=== PATIENT | male | born 1950 | race Caucasian/White ===

== ENCOUNTER 2019-11-06 07:35 | Outpatient (CLI) | payer MEDICARE, SELFPAY ==
--- NOTE | 2019-11-14 14:04 | SLEEP_ITS ---
Split night sleep study. DATE OF STUDY: 11/06/2019 ORDERING PHYSICIAN: Tunde Kirkpatrick M.D. REASON FOR THE STUDY: Obstructive sleep apnea syndrome. HISTORY: This patient is a 69-year-old man, 70 inches tall, weighing 258 pounds with a body mass index of 37. He has a prior history of obstructive sleep apnea syndrome diagnosed 25 years ago. He has been using CPAP off and on. Lately, he has had significant difficulties with his sleep and he is feeling more restless. He has difficulty falling asleep, waking up during the night, waking up too early in the morning, excessive daytime sleepiness and difficulty waking up. There is also a family history with 2 brothers on CPAP. He frequently snores and it is frequently loud enough that others complain about it. He frequently has trouble sleeping with cold, occasionally gasps for breath at night. Occasionally, he has problems breathing at night witnessed by others and constantly sweats excessively at night. He rarely notices his heart pounding or beating irregularly at night. He frequently falls asleep during the day frequently involuntarily, but never while driving. He does not have loss of muscle tone with extreme emotion. He does not have daytime difficulties due to excessive sleepiness. He occasionally feels paralyzed when waking or falling asleep. He frequently has vivid dreamlike scenes upon awakening or falling asleep. He is never afraid to go to sleep. He occasionally has nightmares. He frequently remembers his dreams and frequently has racing thoughts to his mind. He rarely feels sad or depressed and rarely feels anxious. He frequently has muscular tension and notices parts of his body jerking. He frequently kicks excessively at night. He rarely has crawly achy feelings in his legs and occasionally has leg pain at night. He does not have morning jaw pain. He rarely grinds his teeth during sleep. He frequently is bothered by pain during the day and is awakened by pain at night. He constantly wakes up feeling stiff in the morning with sore achy muscles and pain in the neck and spine. He has bowel disturbances, fatigue, memory problems, tremors, and he takes sedatives. Normal bedtime is between midnight and 2 a.m., falling asleep with the use of a sleeping pill. He typically awakens 3 times at night for 10 to 15 minutes. During this time, he will go to the bathroom, sometimes go to the couch and watch television. He wakes in the morning at 10:30 a.m. He estimates somewhere between 6 and 10 hours of sleep each night. Weekends are the same. He does watch television before falling asleep. He does take naps in the afternoon or evening. He does not feel refreshed after short nap. He is usually drowsy in the morning for 2 hours. He feels better in the evening than in the morning. MEDICAL COMORBIDITIES: Bladder cancer, spinal stenosis, chest pain, obstructive sleep apnea syndrome, currently not on CPAP, coronary artery disease with a stent to the mid RCA, shortness of breath, arthritis, bifascicular block, diarrhea, enlarged prostate, hyperlipidemia, hypertension. MEDICATIONS: 1. Aspirin 81 mg a day. 2. Citalopram 20 mg a day. 3. Diclofenac 75 mg twice a day. 4. Finasteride 5 mg daily. 5. Lisinopril 20 mg a day. 6. Nitroglycerin sublingual p.r.n. chest pain. 7. Oxycodone 15 mg q.8 hours p.r.n. pain. 8. Ticagrelor 90 mg twice a day. 9. Tizanidine 4 mg q.8 hours p.r.n. muscle spasms. HABITS: Currently not a smoker. Caffeine, 3 sodas a day. No alcohol. He is a former smoker, 2 packs a day for 40 years. He quit 17 years ago. DESCRIPTION OF THE STUDY: On the [place] Sleepiness Scale, his score is 14. This was conducted as a split night study using the [employer] multiple channel system including E
== END 2019-11-06 07:36 | disposition home or self-care (01) ==
LOC: ANHCSM 07:36
PROVIDERS: Visit Provider Internal Medicine Cardiovascular Disease
DX: G47.33 Obstructive sleep apnea (adult) (pediatric) (principal)
CPT/HCPCS: 95811

== ENCOUNTER 2021-03-15 01:25 | Day surgery (SDC) | payer MEDICARE, SELFPAY ==
[2021-02-26 11:53] VITALS: BMI 35.9
[2021-03-15 10:55] VITALS: BP 149/83; PULSE 72; RESP 16; TEMP 36.3; O2SAT 95
[2021-03-15] MEDS: LACTATED RINGERS 1,000 ML 150 ML IV CONT (10:59)
--- NOTE | 2021-03-15 11:35 | WPDGICN ---
Assessment and Plan Assessment and plan (1) Dysphagia: Code(s): R13.10 - Dysphagia, unspecified Status: Acute Assessment and Plan: Patient has intermittent this dysphagia. Specifics are difficult to analyze. Appears to happen with all textures of food. Plan is for EGD to assess more thoroughly. (2) Diarrhea: Code(s): R19.7 - Diarrhea, unspecified Status: Acute Assessment and Plan: Patient has intermittent diarrhea raising the question of irritable bowel syndrome. Plan is for colonoscopy. If this is unremarkable a trial of fiber supplementation may be of additional benefit. GI Consult Note Consult date/time: 03/15/21 11:35 HPI: Nestor Sanchez is a 71 year old male Presents with complaints of diarrhea and difficulty swallowing. Patient reports difficulty swallowing both soda, water, and food. He states this occurs intermittently. No specific foods nor dietary intake seemed to precipitate this. It does not happen with all dietary intake. Patient denies any heartburn. He has no substernal chest pain. He has no throat pain. States this is been present for several years. He denies any weight loss or bleeding. Presents to evaluate with an EGD today. Patient also had 6 complaints of diarrhea. This occurs intermittently has also been present for several years. He states that he has had loose stools frequently after eating. It is not persistent. He often will have normal stools. He takes Imodium up to 4 or 6 a night. He has never had inflammation. Denies any bleeding. He has had no fevers. Patient reports having an unremarkable colonoscopy in the past. His family history is noncontributory. Colonoscopy is requested because of intermittent diarrhea. Patient has never tried any additional therapy besides the Imodium for his loose stools. 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 SOB (shortness of breath) on exertion Spinal stenosis Family History Family History Sibling Family history of diabetes mellitus in first degree relative Father Family history of heart disease in male family member before age 55 Other Hypertension Social History Social History Smoking packs per day: 1 Smoking cigarettes per day: 20.0 Years smoked: 2,002 Smoking pack-years: 2002.00 Smoking status: Former smoker Smoking end date: 08/28/02 Alcohol intake: current Substance use type: does not use Living arrangements: with family Additional living arrangements comments: lives with spouse Additional occupation/education comments: he worked in [employer], now retired, previously biked 20 miles a day. Likes to be outdoors. Gender identity (if verbalized by the patient): Male Sexual Orientation (if Verbalized by the Patient): Straight or Heterosexual Spiritual care concerns: No Meds Home Medications and Allergies Home Medications Medication Instructions Recorded Confirmed Type atorvastatin 40 mg tablet 40 mg PO DAILY 03/09/20 03/15/21 History carvedilol 12.5 mg tablet 12.5 mg PO Q12H 03/09/20 03/15/21 History citalopram 20 mg tablet 20 mg PO DAILY 03/09/20 03/15/21 History finasteride 5 mg tablet 5 mg PO DAILY 03/09/20 03/15/21 History lisinopril 20 mg tablet 20 mg PO DAILY 03/09/20 03/15/21 History nitroglycerin 400 mcg sublingual 1 mcg SUBLINGUAL Q5M PRN 03/09/20 03/15/21 History powder in a packet tizanidine 4 mg capsule 4 mg PO BID PRN cap 03/09/20 03/15/21 History oxycodone 10 mg PO TID 02/26/21 03/15/21 History ticagrelo
--- NOTE | 2021-03-15 11:36 | WPDANESEPPF ---
Anes - Initial Pre Proc Eval Procedure: Operation Date: 03/15/21 11:30 Proposed Procedures p Esophagogastroduodenoscopy & Colonoscopy - Jr Palomo MD Date/Time: 03/15/21 11:36 Surgeon: Jr Palomo MD Pre Op Diagnosis: diarrhea, dysphagia Patient Data Age: 71 Gender: M Height: 1.78 m Weight: 114.9 kg Last Vital Signs Temp 97.4 F L 03/15/21 10:55 Pulse 72 03/15/21 10:55 Resp 16 03/15/21 10:55 BP 149/83 H 03/15/21 10:55 Pulse Ox 95 03/15/21 10:55 Allergies Allergy/AdvReac Type Severity Reaction Status Date / Time No Known Allergies Allergy Verified 06/04/20 08:41 Home Medications Medication Instructions Recorded Confirmed Type atorvastatin 40 mg tablet 40 mg PO DAILY 03/09/20 03/15/21 History carvedilol 12.5 mg tablet 12.5 mg PO Q12H 03/09/20 03/15/21 History citalopram 20 mg tablet 20 mg PO DAILY 03/09/20 03/15/21 History finasteride 5 mg tablet 5 mg PO DAILY 03/09/20 03/15/21 History lisinopril 20 mg tablet 20 mg PO DAILY 03/09/20 03/15/21 History nitroglycerin 400 mcg sublingual 1 mcg SUBLINGUAL Q5M PRN 03/09/20 03/15/21 History powder in a packet tizanidine 4 mg capsule 4 mg PO BID PRN cap 03/09/20 03/15/21 History oxycodone 10 mg PO TID 02/26/21 03/15/21 History ticagrelor [Brilinta] 60 mg PO DAILY 02/26/21 03/15/21 History Patient hx anesthesia problems: none Family hx anesthesia problems: none PMFSH Past Medical History Medical History Anxiety Bladder cancer Coronary artery disease RCA stent August 2019 History of tobacco use Hyperlipidemia Hypertension Melanoma 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 SOB (shortness of breath) on exertion Spinal stenosis Family History Family History Sibling Family history of diabetes mellitus in first degree relative Father Family history of heart disease in male family member before age 55 Other Hypertension Social History Social History Smoking packs per day: 1 Smoking cigarettes per day: 20.0 Years smoked: 2,002 Smoking pack-years: 2002.00 Smoking status: Former smoker Smoking end date: 08/28/02 Alcohol intake: current Substance use type: does not use Living arrangements: with family Additional living arrangements comments: lives with spouse Additional occupation/education comments: he worked in [email or web address], now retired, previously biked 20 miles a day. Likes to be outdoors. Gender identity (if verbalized by the patient): Male Sexual Orientation (if Verbalized by the Patient): Straight or Heterosexual Spiritual care concerns: No Anes - Eval Final PreProcedure Day of Procedure 03/15/21 11:36 Patient weight: obese Heart: regular rate and rhythm Lungs: clear to auscultation Airway: Mallampati scale class III Neurological: alert and oriented Last oral intake: >/= 8 hours ASA classification: III Emergent: no Anesthetic plan: proceed Anesthesia type and monitoring: general GIVS and standard monitoring Informed Consent: The patient's anesthetic plan and its attendant risks and benefits were discussed with the patient/family/POA. Questions were solicited and answers provided to the satisfaction of the patient/family/POA.
[2021-03-15] MEDS: SIMETHICONE ORAL SUSPENSION 20 MG/0.3 ML 30 ML BOTTLE 0.6 ML IRRIGATION (12:07)
[2021-03-15 12:16] VITALS: BP 122/70; PULSE 72; RESP 20; O2SAT 99
[2021-03-15 12:26] VITALS: BP 127/77; PULSE 64; RESP 22; O2SAT 99
[2021-03-15 12:36] VITALS: BP 144/84; PULSE 60; RESP 20; O2SAT 100
== END 2021-03-15 12:55 | disposition home or self-care (01) ==
PROVIDERS: PCP Physician Assistant; Visit Provider Internal Medicine Gastroenterology
PROC: 0DJ08ZZ Inspection of Upper Intestinal Tract, Via Natural or Artificial Opening Endoscopic (ICD-10-PCS; CPT 43235; principal; 2021-03-15 11:30)
DX: R19.7 Diarrhea, unspecified (principal); D12.2 Benign neoplasm of ascending colon; R13.10 Dysphagia, unspecified; K57.30 Diverticulosis of large intestine without perforation or abscess without bleeding; K64.8 Other hemorrhoids; I25.10 Atherosclerotic heart disease of native coronary artery without angina pectoris; I10 Essential (primary) hypertension; E78.5 Hyperlipidemia, unspecified; M48.00 Spinal stenosis, site unspecified; G47.33 Obstructive sleep apnea (adult) (pediatric); Z85.820 Personal history of malignant melanoma of skin; F41.9 Anxiety disorder, unspecified; Z95.5 Presence of coronary angioplasty implant and graft; Z85.51 Personal history of malignant neoplasm of bladder; Z87.891 Personal history of nicotine dependence
CPT/HCPCS: 45385; 43235; 43450; 88305; J2001; J2704; J7120

== ENCOUNTER → 2021-05-25 13:55 | Outpatient (CLI) | payer MEDICARE, SELFPAY ==
--- NOTE | ~2021-05-25 | XR_ITS ---
EXAMINATION: XR knee LT 3V DATE: 05/25/2021 14:55 INDICATION: Left knee pain TECHNIQUE: Four views of the left knee were obtained. COMPARISON: 05/14/2019 FINDINGS: Alignment is normal. No fracture or osteochondral lesion. There is mild tricompartmental os teoarthritis characterized by tiny marginal osteophytes. No joint effusion/synovitis. Soft tissues a re unremarkable. IMPRESSION: 1. Mild osteoarthritis without acute osseous abnormality. Reviewed, dictated and finalized at location A.
--- NOTE | ~2021-05-25 | XR_ITS ---
EXAMINATION: XR knee RT 3V DATE: 05/25/2021 14:55 INDICATION: Osteoarthritis and right knee pain TECHNIQUE: Three views of the right knee were obtained. COMPARISON: 05/14/2019 FINDINGS: Alignment is normal. No fracture or osteochondral lesion. There is mild tricompartmental os teoarthritis characterized by tiny marginal osteophytes. No joint effusion/synovitis. Soft tissues a re unremarkable. IMPRESSION: 1. Mild osteoarthritis without acute osseous abnormality. Reviewed, dictated and finalized at location A.
== END ==
PROVIDERS: PCP Physician Assistant; Visit Provider Nurse Practitioner Adult Health
DX: M17.0 Bilateral primary osteoarthritis of knee (principal)
CPT/HCPCS: 73562

== ENCOUNTER 2022-02-03 12:04 | Outpatient (CLI) | payer MEDICARE, SELFPAY ==
--- NOTE | ~2022-02-03 | PE_ITS ---
EXAMINATION: PET skull to mid thigh DATE: 02/03/2022 14:03 INDICATION: Abnormality of the chest by CT. TECHNIQUE: 9.8 mCi of 18-fluorodeoxyglucose (18-FDG) was administered i.v. Low dose computed tomograp hy (CT) images were acquired from the base of the brain to the proximal thighs for attenuation correc tion and anatomic localization. Positron emission tomography (PET) images were acquired after injecti on. Images including fused PET/CT images were reconstructed in axial, coronal, and sagittal planes. A utomatic exposure control is employed as a dose reduction technique. COMPARISON: CT abdomen dated 02/07/2017 FINDINGS: Head/neck: No intracranial abnormality identified. There is a mucous retention cyst left maxillary sinus. Abnormality of the mucosal or parapharyngeal spaces. No cervical lymphadenopathy. No hypermetabolic a ctivity in the neck. There is hypermetabolic activity in the left nasal ala. There appears to be a fo armando mass located at this location with maximum SUV of 5.2. Chest: No significant pleural or pericardial effusion. Cardiomegaly. There is gynecomastia. No lymphadenopat hy. There are a few right pleural calcifications suggesting prior asbestos exposure. No pneumothorax. No endobronchial lesions. Evaluation of lung parenchyma limited by motion artifact. There is right l ower lobe atelectasis/scarring. No hypermetabolic activity in the chest. There are calcified hilar ly mph nodes, consistent with chronic granulomatous disease. There is atherosclerosis. Abdomen/pelvis/proximal thighs: The liver, spleen, pancreas, adrenal glands are unremarkable. There are bilateral renal cysts. Nonobs tructive bowel gas pattern. Colonic diverticulosis without evidence for diverticulitis. There is phys iologic uptake in the colon. No lymphadenopathy. No free air or free fluid. Bones/Soft tissues: There are anterior fusion changes in the cervical spine. No hypermetabolic activity is identified in the bones. IMPRESSION: 1. Focal mass left nasal ala with hypermetabolic activity, suspicious for malignancy. Correlate clini tushar. Reviewed, dictated and finalized at location B. IMPRESSION: 1. Focal mass left nasal ala with hypermetabolic activity, suspicious for malig phil. Correlate clinically.
[2022-02-03 12:41] LABS: Glucose Point of Care 114 mg/dl (65-105)
== END 2022-02-03 12:05 | disposition home or self-care (01) ==
PROVIDERS: PCP Physician Assistant; Visit Provider Physician Assistant
DX: R91.1 Solitary pulmonary nodule (principal)
CPT/HCPCS: 78815; A9552

== ENCOUNTER 2022-03-18 12:55 | Outpatient (CLI) | payer MEDICARE, SELFPAY ==
--- NOTE | ~2022-03-18 | MR_ITS ---
EXAMINATION: MR knee LT wo con DATE: 03/18/2022 13:27 INDICATION: Left knee pain TECHNIQUE: Magnetic resonance imaging (MRI) of the left knee was performed without intravenous contra st. Sequences included coronal PD-weighted FSE, coronal PD-weighted FS FSE, sagittal T2-weighted FSE , sagittal PD-weighted FS FSE and axial PD weighted fat saturated FSE. COMPARISON: None. FINDINGS: Medial compartment: Complex tear extending obliquely in all 3 planes across the anterior/inner half of the posterior horn of the medial meniscus. There is an additional less well-defined complex tear plane at the medial me niscal body which extends from the inner free edge to the periphery along the inferior articular surf frandy. There is subluxation of a small portion of the posterior meniscal body along the inferior periph radha which is displaced into the medial gutter along the medial margin of the rim of the tibial platea u. There appears be diffuse mild partial-thickness cartilage thinning throughout the medial compartme nt relative to the lateral compartment but with diffusely smooth chondral surface. Lateral compartment: Lateral meniscus is normal. Small region of mild chondral swelling with some signal heterogeneity at the posterior medial aspect of the lateral tibial plateau suspicious but not definitive for some part ial-thickness chondral fissuring. Mild partial-thickness cartilage loss with smooth chondral surface along the posterior weightbearing lateral femoral condyle.. Patellofemoral compartment: Deep chondral fissure along the medial patellar facet. There is some chondral surface regularity april g the patellar apical ridge and medial side of the lateral facet. There is linear increased signal de ep within the cartilage in this region on the axial and sagittal images but which appears more likely to be related to small amount of motion artifact. Deep chondral ulceration with underlying cortical irregularity and mild cystlike changes at the inferior aspect of the trochlear groove and inferomedia l aspect of the lateral trochlea. Ligaments and tendons: Anterior and posterior cruciate ligaments are normal. The medial collateral ligament and fibular megan ateral ligament complex are normal. Moderate quadriceps tendinopathy with a clearly small partial thi ckness intrasubstance tear located centrally within the tendon beginning approximately 2 cm proximal to the patellar insertion and involving no greater than 15% of the cross-sectional area of the tendon . Patellar tendon is normal. The visualized medial and lateral hamstring tendons as well as the iliot ibial band are normal. Fluid: Physiologic amount of fluid in the joint space. No loose osteochondral bodies identified. Osseous/other: Small low signal intensity bone islands at the medial and lateral femoral condyles as well as a coupl e at the lateral aspect of the proximal tibia. Marrow signal is otherwise unremarkable. No fracture o r pathologic marrow replacing process. IMPRESSION: 1. Complex medial meniscal tear. 2. Mild tricompartmental osteoarthritis most notable for a small region of high-grade chondromalacia at the trochlea. 3. Moderate quadriceps tendinopathy with likely small partial-thickness intrasubstance tear. Reviewed, dictated and finalized at location A. IMPRESSION: 1. Complex medial meniscal tear. 2. Mild tricompartmental osteoarthritis most notable for a small region of high -grade chondromalacia at the trochlea. 3. Moderate quadriceps tendinopathy with likely small partial-thickness intrasu bstance tear.
== END 2022-03-18 12:56 | disposition home or self-care (01) ==
PROVIDERS: PCP Physician Assistant; Visit Provider Orthopaedic Surgery
DX: M25.562 Pain in left knee (principal); S83.232A Complex tear of medial meniscus, current injury, left knee, initial encounter; M17.12 Unilateral primary osteoarthritis, left knee; M94.262 Chondromalacia, left knee
CPT/HCPCS: 73721

== ENCOUNTER 2022-04-13 13:05 | Outpatient (CLI) | payer MEDICARE, SELFPAY ==
--- NOTE | 2022-04-13 13:22 | ECG_ITS ---
Measurements Intervals [place] Rate: 58 P: 16 [place]: 156 QRS: 55 QRSD: 146 T: -85 QT: 400 QTc: 395 Interpretive Statements SINUS BRADYCARDIA RIGHT BUNDLE BRANCH BLOCK [120+ ms QRS DURATION, UPRIGHT V1, 40+ ms S IN I/aVL/V4/V5/V6] MODERATE ST AND T-WAVE ABNORMALITY, CONSIDER LATERAL ISCHEMIA [-0.1+ mV T WAVE IN I/aVL/V5/V6] ABNORMAL ECG Electronically Signed On 04-13-2022 13:43:52 CDT by Tunde Kirkpatrick M.D.
== END 2022-04-13 13:06 | disposition home or self-care (01) ==
LOC: ANHLAB 13:07
PROVIDERS: PCP Physician Assistant; Visit Provider Orthopaedic Surgery
DX: Z01.810 Encounter for preprocedural cardiovascular examination (principal); R00.1 Bradycardia, unspecified; I45.10 Unspecified right bundle-branch block
CPT/HCPCS: 93005

== ENCOUNTER 2022-06-14 07:47 | Outpatient (CLI) | payer MEDICARE, SELFPAY ==
--- NOTE | 2022-07-05 16:26 | WPDSLEEPSTUD ---
Sleep Study Date of Study: 06/14/22 Ordering Provider: Grecia Brennan MD Interpreting Physician: Jennifer Graf DO Sleep Study Type: BiPAP Titration Height: 1.8 m Weight: 123.831 kg Body Mass Index: 38.0 Neck Circumference (inches): 19 [place]: 12 Reason for Sleep Study Elevated ISRA on autoPAP 5-20 cm H2O. 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 The patient is currently retired. He occasionally awakens from sleep short of breath. He denies awakening at night with heartburn, belching or cough. He constantly snores loud enough that others complain. He occasionally has trouble sleeping when he has a cold. He frequently wakes up gasping for air throughout the night. He constantly has breathing problems at night observed by himself or others. He occasionally sweats excessively at night. He rarely has heart palpitations or irregular heartbeats during the night. He frequently falls asleep during the day but never while driving. He denies sleep paralysis and cataplexy. He occasionally experiences vivid dreamlike scenes upon awakening or falling asleep. He denies feeling afraid of going to sleep. He occasionally has nightmares. He occasionally remembers his dreams. He rarely has thoughts racing through his mind. He rarely feels sad, depressed or anxious. He rarely has muscular tension. He occasionally notices parts of his body jerk. He occasionally kicks during the night. He rarely has crawling and aching feelings in his legs as well as leg pain during the night. He occasionally grinds his teeth during sleep but never awakens with morning jaw pain. He is constantly bothered by pain during the day and frequently awakened by pain during the night. He constantly wakes up feeling stiff in the morning. He constantly wakes up with sore or achy muscles. He constantly wakes up with pain in the neck, spine and other joints. He goes to bed at 1:00 a.m. on both weekdays and weekends. It takes him 20 minutes to fall asleep. He wakes up 1-2 times throughout the night for unknown reasons. When he awakens he will try to go back to sleep or sometimes go to the TV room. He is usually able to fall back asleep within 10 minutes. He wakes up at 7:00 a.m. on both weekdays and weekends. He typically gets 6 hours of sleep per night. He will occasionally wake up and go to the TV room during the night. If he stays there, he will stay and watch television for 2 hours after waking up in the morning. He currently lives with his . He does not consume any caffeinated beverages within 2 hours of bedtime. He does not engage in physical exercise before bedtime. He will watch television before falling asleep. He will take naps in the afternoon or the evening but they are not refreshing. The patient drinks 2 cups of coffee and 5 cans of soda per day. He is a former smoker. He denies alcohol and recreational drug use. [facility] Past Medical History Medical History Anxiety Bladder cancer Coronary artery disease RCA stent August 2019 History of tobacco use Hyperlipidemia Hypertension Melanoma 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 SOB (shortness of breath) on exertion Spinal stenosis Family History Family History Sibling Family history of diabetes mellitus in first degree relative Father Family history of heart disease in male family member before age 55 Other Hypertension Social History Social History Smoking packs per day: 1 Smoking cigarettes per day: 20.0 Years smoked: 22 Smoking pack-years: 22.00 Smoking status: Former smoker Smoking end date: 08/28/02 Gokul
[2022-07-05 16:40] VITALS: BMI 38.0
--- NOTE | 2022-10-06 10:05 | SLEEP ---
pt is having continued mask issues. tech offered pt to come in for mask fit. pt is currently sick he will call lab to schedule. pt scheduled for 30 day call back.
== END 2022-06-15 08:39 | disposition home or self-care (01) ==
PROVIDERS: PCP Physician Assistant; Visit Provider Internal Medicine Critical Care Medicine
DX: G47.31 Primary central sleep apnea (principal)
CPT/HCPCS: 95811

== ENCOUNTER 2022-06-15 13:24 | Outpatient (CLI) | payer MEDICARE, SELFPAY ==
--- NOTE | 2022-06-15 13:50 | ECHO_ITS ---
Patient Info Name: Nestor Sanchez Age: 72 years : 1950 Gender: Male Ht: 70 in Wt: 270 lbs BSA: 2.51 m2 HR: 78 bpm BP: 150 / 81 mmHg Technical Quality: Fair Exam Date: 06/15/2022 2:17 PM Exam Location: [facility] Patient Status: Outpatient Admit Date: 06/15/2022 Staff Ordering Physician: Grecia Brennan MD [employer]andise: Jyoti Reyes RDCS Attending Provider: Grecia Brennan MD Referring Physician: Anu LINO; Exam Type: CA echo dop color flow w con Study Info Indications G47.31 - PRIMARY CENTRAL SLEEP APNEA Complete two-dimensional, color flow and Doppler transthoracic echocardiogram is performed with contrast to opacify the left ventricle and to improve the deliniation of the left ventricle endocardial borders. Contrast/Agitated Saline Contrast/Ag. Saline: Definity Amount: 2.00 ml Administered By: Jyoti Reyes [facility] Existing IV Access: No New IV Access: Left Site Condition: IV removed Summary 1. Left ventricular chamber dimension is normal. 2. Definity contrast administered improved wall motion interpretation. 3. Left ventricular systolic function is normal, estimated at 65-70%. 4. The left ventricular diastolic function is grade I diastolic dysfunction. 5. E/e' 10 is mildly elevated. 6. Left atrial chamber dimension is mildly enlarged. 7. No pulmonary hypertension, estimated pulmonary arterial systolic pressure is 28 mmHg. Left Ventricle E/e' 10 is mildly elevated. Definity contrast administered improved wall motion interpretation. Left ventricular chamber dimension is normal. Left ventricular systolic function is normal, estimated at 65-70%. The left ventricular diastolic function is grade I diastolic dysfunction. Right Ventricle Right ventricular systolic function is normal. Right ventricular chamber dimension is normal. Left Atria Left atrial chamber dimension is mildly enlarged. Right Atria Right atrial chamber dimension is normal. Aortic Valve The aortic valve is trileaflet. There is no aortic valve stenosis. There is no aortic valve regurgitation. Pulmonic Valve There is no pulmonic regurgitation. Mitral Valve There is no mitral valve stenosis. There is no mitral valve regurgitation. Tricuspid Valve There is no tricuspid valve regurgitation. No pulmonary hypertension, estimated pulmonary arterial systolic pressure is 28 mmHg. Pericardium/Pleural There is no pericardial effusion. Inferior Vena Cava Normal inferior vena cava with >50% collapse upon inspiration consistent with normal right atrial pressure, 5 mmHg. Aorta The aortic root size at the sinus of Valsalva is normal. Left Ventricular Outflow Tract Name Value Normal LVOT 2D LVOT Diameter 2.20 cm LVOT Doppler LVOT Peak Gradient 4 mmHg LVOT Mean Gradient 2 mmHg LVOT VTI 20.22 cm LVOT VTI/AV VTI Ratio 0.86 LVOT Stroke Volume 77.12 ml LVOT CO 15
[2022-06-15] MEDS: PERFLUTREN LIPID MICROSPHERES 1.5 ML VIAL DILUTED TO 10 ML TOTAL VOLUME IV PUSH (14:50)
== END 2022-06-15 13:25 | disposition home or self-care (01) ==
LOC: ANHCARD 13:26
PROVIDERS: PCP Physician Assistant; Visit Provider Internal Medicine Critical Care Medicine
DX: G47.31 Primary central sleep apnea (principal); I51.7 Cardiomegaly
CPT/HCPCS: C8929; Q9957

== ENCOUNTER 2022-06-22 12:36 | Outpatient (CLI) | payer MEDICARE, SELFPAY ==
--- NOTE | 2022-06-22 14:15 | WPDPFTINT ---
PFT Procedure Performed PFT Procedure Performed Spirometry with Pre/Post Bronchodilator Plethysmography (Lung Vol) Diffusing Cap (DLCO) Flow Vol Loop PFT Interpretation This is a pulmonary function test with pre and post-bronchodilator spirometry, plethysmography and diffusing capacity. The test was performed and results interpreted in accordance with the 2019 and 2005 ATS/ERS Task Force guidelines respectively using the Global Lung Function Initiative-2012 reference equations. Patient demonstrated good effort and cooperation. Reproducibility criteria were met. The quality of the pre bronchodilator spirometry maneuver was Grade A and post bronchodilator spirometry maneuver was Grade A. Findings: Spirometry: The contour the inspiratory and expiratory flow tracing are normal. The pre bronchodilator FVC is 3.31 L, 78% predicted. The pre bronchodilator FEV1 is 2.68 L, 83% predicted. The pre bronchodilator FEV1: FVC ratio was 81%. The post bronchodilator FVC is 3.45 L, representing a 4% increase. The post bronchodilator FEV1 is 2.71 L, representing 1% increase. The post bronchodilator FEV1: FVC ratio 79%. Plethysmography: The total lung capacity 7.34 L, 104% predicted. The functional residual capacity is 4.72 L, 126% predicted. The residual volume is 2.81 L, 115% predicted. Diffusing capacity: The diffusing capacity unadjusted for hemoglobin and carboxyhemoglobin is 19.7, 75% predicted. The diffusing capacity adjusted for alveolar volume is 3.94, 100% predicted. Impression: The spirometry is normal without evidence of an obstructive abnormality. There is no significant improvement after inhaling a single dose of albuterol. The lung volumes are normal. The diffusing capacity is normal. There are no prior studies for comparison
--- NOTE | 2022-06-22 14:17 | WPDSIXMINUTE ---
Six Minute Walk Procedure Procedure Performed Pulmonary Stress Test (6 min walk) Six Minute Walk Six Minute Walk: This is a 6 minute walk test. The test was performed and interpreted in accordance with the 2014 ERS/ATS task force guidelines. Findings: The patient's resting room air oxygen saturation measured by pulse oximetry was 93% and heart rate was 59 bpm. Patient ambulated for 305 meters and oxygen saturation remained 92 to 95%. Heart rate at the end of the study was 84 bpm. The patient did not qualify for supplemental oxygen at rest or with ambulation. There are no prior studies for comparison.
== END 2022-06-22 12:37 | disposition home or self-care (01) ==
LOC: ANHPFT 12:38
PROVIDERS: PCP Physician Assistant; Visit Provider Internal Medicine Critical Care Medicine
DX: R06.02 Shortness of breath (principal)
CPT/HCPCS: 94060; 94618; 94726; 94729

== ENCOUNTER → 2023-09-19 14:18 | Outpatient (CLI) | payer MEDICARE, SELFPAY ==
--- NOTE | ~2023-09-19 | MR_ITS ---
EXAMINATION: MR lumbar spine wo con DATE: 09/19/2023 14:51 INDICATION: Chronic low back pain. Lumbar radiculopathy. TECHNIQUE: Magnetic resonance imaging (MRI) of the lumbar spine was performed without intravenous con trast. Sequences included sagittal T2-weighted FSE, sagittal T2-weighted FS FSE, sagittal T1-weighted FSE, and axial T2-weighted FSE. COMPARISON: Lumbar spine MRI 09/15/2011 FINDINGS: There is 5 degrees dextrocurvature of lumbar spine. There is mild chronic anterior wedging of T12 and L1 vertebral bodies. There is mildly decreased disc height at L2-L3 and severely decreased disc height at L3-L4 and L4-L5. The distal spinal cord signal intensity is normal. The conus medulla ris is at L1. Osseous central spinal canal is developmentally small in lumbar spine. The following di sc levels are specifically discussed: L1-L2: The disc does not extend beyond the endplate margin. There is severe bilateral facet joint ost eoarthritis. There is no neural foraminal stenosis. There is mild central canal stenosis. L2-L3: The disc is bulging. There is severe bilateral facet joint osteoarthritis. There is mild bilat eral neural foraminal stenosis. There is mild central canal stenosis. L3-L4: The disc is bulging and has an annular fissure. There is severe bilateral facet joint osteoart hritis. There is moderate bilateral neural foraminal stenosis. There is mild central canal stenosis. There is moderate stenosis of the lateral recesses. L4-L5: The disc is bulging and has an annular fissure. There is severe bilateral facet joint osteoart hritis. There is moderate bilateral neural foraminal stenosis. There is mild central canal stenosis. There is severe stenosis of right lateral recess and moderate stenosis of left lateral recess. L5-S1: There is a central protrusion. There is moderate bilateral facet joint osteoarthritis. There i s mild right neural foraminal stenosis. There is mild central canal stenosis. IMPRESSION: 1. Severe lumbar spondylosis, worsened from 09/15/2011. Reviewed, dictated and finalized at location E. 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
== END ==
PROVIDERS: PCP Nurse Practitioner Family; Visit Provider Nurse Practitioner Family
DX: M47.26 Other spondylosis with radiculopathy, lumbar region (principal)
CPT/HCPCS: 72148

== ENCOUNTER 2024-06-13 11:11 | Outpatient (CLI) | payer MEDICARE, SELFPAY ==
--- NOTE | ~2024-06-13 | US_ITS ---
EXAMINATION: US renal BI DATE: 06/13/2024 12:18 INDICATION: Serum creatinine above reference range TECHNIQUE: Multiple ultrasound grayscale images of the kidneys were obtained. COMPARISON: None. FINDINGS: The right kidney measures 13.2 x 5.4 x 5.1 cm. The left kidney measures 12.7 x 4.7 x 5.5 cm. The kidn eys demonstrate normal echogenicity. Bilateral anechoic renal cysts the largest measuring 2.9 cm at t he inferior left kidney with additional 2.2 cm cysts at both the left and right kidney. There is no h ydronephrosis in either kidney. No stones identified. Subtle trabeculation of the bladder mucosa lik hayley related to chronic outlet obstruction from the enlarged prostate which measures 4.8 x 4.2 cm with echogenic calcifications. IMPRESSION: 1. Bilateral renal cysts. Otherwise normal kidneys without hydronephrosis. Reviewed, dictated and finalized at location A.
== END 2024-06-13 11:12 | disposition home or self-care (01) ==
LOC: ANHIMG 11:20
PROVIDERS: PCP Nurse Practitioner Family; Visit Provider Physician Assistant
DX: R94.4 Abnormal results of kidney function studies (principal); Q61.02 Congenital multiple renal cysts
CPT/HCPCS: 76775

== ENCOUNTER 2024-06-17 13:28 | Outpatient (CLI) | payer MEDICARE, SELFPAY ==
--- NOTE | 2024-06-17 14:01 | ECG_ITS ---
Test Date: 2024-06-17 14:12:17 Measurements Intervals [place] Rate: 67 P: 5 RI: 161 QRS: 51 QRSD: 139 T: 199 QT: 398 QTc: 421 Interpretive Statements SINUS RHYTHM RIGHT BUNDLE BRANCH BLOCK [120+ ms QRS DURATION, UPRIGHT V1, 40+ ms S IN I/aVL/V4/V5/V6] MARKED T-WAVE ABNORMALITY, CONSIDER ANTEROLATERAL ISCHEMIA [-0.5+ mV T-WAVE IN I/aVL/V3-V6] ABNORMAL ECG No previous ECG available for comparison Electronically Signed On 06-17-2024 14:24:01 CDT by Hany Santiago M.D.
[2024-06-17 14:20] LABS: Basophils Absolute Auto 0.1 K/mm3 (0.0-0.1); Basophils Percent Auto 0.8 % (0.2-1.2); Eosinophils Absolute Auto 0.2 K/mm3 (0-0.3); Hematocrit 39.9 % (42.0-52.0); Hemoglobin 13.2 g/dL (14.0-18.0); Immature Granulocyte Absolute 0.05 K/mm3 (0.00-0.031); Immature Granulocyte Percent A 0.7 % (0-0.5); Lymphocytes Absolute Auto 2.32 K/mm3 (0.9-3.2); Mean Corpuscular HGB Conc 33.1 g/dl (32-36); Mean Corpuscular Volume 96.6 fl (80-100); Mean Platelet Volume 10.1 fl (7.4-10.4); Monocytes Absolute Auto 0.7 K/mm3 (0.1-0.6); Neutrophils Percent Auto 54.5 % (45.5-73.1); Nucleated Red Blood Cells Perc 0.3 % (0.0-0.2); Platelet Count Result 236 k/mm3 (150-375); Red Blood Count 4.13 M/mm3 (4.6-6.20); Red Cell Distribution Width 15.8 % (11.5-14.5); White Blood Count 7.3 K/mm3 (4.5-10.0)
[2024-06-17 14:32] LABS: Add Urine Microscopic? NO; Appearance Urine Clear (Clear); Bilirubin Urine Negative (Negative); Blood Urine Negative (Negative); Color Urine Yellow (Yellow); Glucose Urine UA Negative (Negative); Ketones Urine Negative (Negative); Leukocyte Esterase Ur Negative LEU/UL (Negative); Nitrate Urine Negative (Negative); Protein Urine Negative (Negative); Specific Grav Ur 1.021 (1.001-1.035); pH Urine 5.5 (5.0-9.0)
[2024-06-17 14:35] LABS: Alanine Aminotransferase 19 U/L (6-50); Albumin Level 4.2 g/dL (3.5-5.1); Alkaline Phosphatase 30 U/L (38-126); Anion Gap 8 mmol/L (4-12); Aspartate Amino Transferase 24 U/L (17-59); Bilirubin,Total 0.7 mg/dL (0.2-1.3); Blood Urea Nitrogen 26 mg/dL (9-20); CRP < 0.5 mg/dL (<1.0); Calcium 9.4 mg/dL (8.4-10.2); Carbon Dioxide 23 mmol/L (22-30); Chloride 109 mmol/L (98-107); Estimated Glomerular Filt Rate 60; Glucose 95 mg/dL (65-110); Potassium 4.5 mmol/L (3.4-5.0); Sodium 140 mmol/L (137-145)
[2024-06-17 14:53] LABS: Erythrocyte Sedimentation Rate 15 mm/hr (0-20)
== END 2024-06-17 13:29 | disposition home or self-care (01) ==
LOC: ANHLAB 13:32
PROVIDERS: PCP Nurse Practitioner Family; Visit Provider Nurse Practitioner Family
DX: Z01.818 Encounter for other preprocedural examination (principal); Z79.899 Other long term (current) drug therapy
CPT/HCPCS: 36415; 80053; 81003; 85025; 85652; 86140; 93005

== ENCOUNTER 2024-08-07 13:45 | Outpatient (CLI) | payer MEDICARE, SELFPAY ==
--- NOTE | ~2024-08-07 | XR_ITS ---
XR chest 2V Ordering provider: Floresita Segura, BENIGNO History: 74 years Male with . COUGH . Comparison: None. FINDINGS: MEDIASTINUM: The cardiac silhouette is not enlarged. LUNGS: No effusions or pneumothorax. Opacification in the right lung bas seen suggestive of atelectas is versus pneumonia. OTHER: No free air under the diaphragm. IMPRESSION: Right basal atelectasis versus pneumonia. Reviewed, dictated and finalized at location A. 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
== END 2024-08-07 13:46 | disposition home or self-care (01) ==
LOC: MICIMG 13:46
PROVIDERS: PCP Physician Assistant; Visit Provider Physician Assistant
DX: R05.9 Cough, unspecified (principal); R91.8 Other nonspecific abnormal finding of lung field
CPT/HCPCS: 71046

== ENCOUNTER 2025-01-28 12:48 | Outpatient (CLI) | payer MEDICARE, SELFPAY ==
--- NOTE | ~2025-01-28 | XR_ITS ---
Lumbosacral Spine: AP and lateral views Clinical History: Pain Findings: The normal lordotic curve is maintained. The vertebral bodies and posterior elements are i ntact. There is severe facet arthropathy throughout the lumbar spine. There is advanced degenerative disc narrowing at L3-L4 and L4-L5. No instability evident on flexion or extension. The sacroiliac irene nts are normally outlined. Impression: Advanced degenerative spondylosis, as detailed above. Reviewed, dictated and finalized at location M. Impression: Advanced degenerative spondylosis, as detailed above.
--- NOTE | ~2025-01-28 | MR_ITS ---
MRI of the lumbar spine Clinical History: Radiculopathy Technique: Axial T2-weighted images, and sagittal T1-weighted, T2-weighted, and T2 fat-sat images wer e acquired. COMPARISON: 09/19/2023 Findings: No acute fracture or subluxation identified. Osseous alignment is unchanged. No suspicious bone marrow signal abnormality seen. There are Modic type I changes about the L3-L4 disc space. At L1-L2, there is advanced facet arthropathy. No disc bulge or herniation. No spinal canal stenosis. Probable minimal bilateral foraminal narrowing At L2-3, there is diffuse disc bulge with severe facet arthropathy, resulting in severe spinal canal stenosis/thecal sac compression. There is moderate to severe left neural foraminal narrowing, and mil d right neural foraminal narrowing. At L3-L4, there is severe degenerative disc narrowing. Disc bulge and severe facet arthropathy result in severe spinal canal stenosis/thecal sac compression and severe bilateral neural foraminal narrowi ng, left worse than right. At L4-L5, there is advanced degenerative disc narrowing. Diffuse disc bulge and severe facet arthropa thy contribute to severe spinal canal stenosis at this level. There is severe bilateral neural forami nal narrowing, right worse than left. At L5-S1, there is mild diffuse disc bulge with mild facet arthropathy. No central canal stenosis. Th ere is moderate to advanced bilateral neural foraminal narrowing. Paravertebral soft tissues are unremarkable. Impression: Severe degenerative spondylosis of the lumbar spine, as detailed above. There is severe spinal canal stenosis at L2-L3, L3-L4, L4-L5. There is multilevel advanced bilateral neural foraminal narrowing. Reviewed, dictated and finalized at [facility]. Impression: Severe degenerative spondylosis of the lumbar spine, as detailed above. There i s severe spinal canal stenosis at L2-L3, L3-L4, L4-L5. There is multilevel adva nced bilateral neural foraminal narrowing.
== END 2025-01-28 12:49 | disposition home or self-care (01) ==
LOC: MICIMG 12:50
PROVIDERS: PCP Physician Assistant
DX: M79.2 Neuralgia and neuritis, unspecified (principal); R53.1 Weakness; M48.062 Spinal stenosis, lumbar region with neurogenic claudication; M47.896 Other spondylosis, lumbar region
CPT/HCPCS: 72110; 72148

== ENCOUNTER 2025-07-08 13:49 | Outpatient (CLI) | payer MEDICARE, SELFPAY ==
--- NOTE | ~2025-07-08 | US_ITS ---
EXAMINATION: US carotid duplex BI DATE: 07/08/2025 14:58 INDICATION: Right carotid bruit TECHNIQUE: Grayscale, color Doppler, and pulsed Doppler images of the cervical carotid arteries were obtained. The degree of vessel stenosis is placed in one of the following categories: normal, <50%, 50-69%, >=70% but less than near- occlusion, near-occlusion, or total occlusion. Note that percent stenosis relative to normal distal artery lumen diameter is indirectly measured from velocity measurements as described by Hakeem, et al. Radiology 2003; 229:340-346. COMPARISON: None. FINDINGS: RIGHT: The right common carotid artery (CCA) peak systolic velocity (PSV) is 93 cm/s. The right internal carotid artery (ICA) PSV is 98 cm/s. The right ICA end- diastolic velocity (EDV) is 18 cm/s. The right ICA/CCA PSV ratio is 1.1. Grayscale and color Doppler images yield an estimate of less than 50% diameter reduction from plaque in the ICA. There is antegrade flow in the right vertebral artery. LEFT: The left CCA PSV is 119 cm/s. The left ICA PSV is 145 cm/s. The left ICA EDV is 28 cm/s. The left ICA/CCA PSV ratio is 1.2. Grayscale and color Doppler images yield an estimate of less than 50% diameter reduction from plaque in the ICA. There is antegrade flow in the left vertebral artery. IMPRESSION: 1. Less than 50% stenosis in the right internal carotid artery. 2. Less than 50% stenosis in the left internal carotid artery. Reviewed, dictated and finalized at location A. 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
--- OUTSIDE RECORDS SUMMARY | 2025-07-08 13:59 | XMS_ITS | Clinical Summary ---
Author Organization [facility] Address [address] [place] [address] Care Team Providers Care Banquet Attendant Name Role Phone Floresita Segura Primary Care Pr ovider Allergies No known active allergies Medications citalopram (CeleXA) 20 mg tablet Take 1 tablet (20 mg total) by mouth every morning Active tiZANidine (ZANAFLEX) 4 mg tablet Take 1 tablet (4 mg total) by mouth every 8 (eight) hours as needed for muscle spasms. 1 tablet 8 Active finasteride (PROSCAR) 5 mg tablet Take 1 tablet (5 mg total) by mouth daily 9 Active lisinopril (PRINIVIL,ZESTRIL ) 20 mg tablet Take 1 tablet (20 mg total) by mouth daily Active oxyCODONE (ROXICODONE) 15 mg immediate release tablet Take 10 mg by mouth every 8 (eight) hours as needed 0 Active aspirin 81 mg enteric coated tabletIndications :Abnormal stress test Take 1 tablet (81 mg total) by mouth daily 30 tablet 11 0 Active C,E,zinc,copper [id number] (Ocuvite Adult 50 Plus) 250-5-1 mg capsule Ocuvite Active isosorbide mononitrate ER (IMDUR) 30 mg 24 hr tabletIndications :Coronary artery disease of [place] artery of [place] heart with stable angina pectoris Take 1 tablet (30 mg total) by mouth daily 30 tablet 11 2 Active oxybutynin XL (DITROPAN XL) 15 mg 24 hr tablet Take 1 tablet (15 mg total) by mouth daily 2 Active naloxone (NARCAN) 4 mg/actuation spray,non-aerosol Narcan 4 mg/actuation nasal spray Active pregabalin (LYRICA) 100 mg capsule pregabalin 100 mg capsule TAKE ONE CAPSULE BY MOUTH TWICE DAILY Active sildenafil citrate (VIAGRA ORAL) sildenafil Active mupirocin (BACTROBAN) 2 % ointment APPLY OINTMENT TOPICALLY TO AFFECTED AREA THREE TIMES DAILY 2 Active nitroglycerin (NITROSTAT) 0.[address] 1 tablet (0.4 mg total) under the tongue every 5 (five) minutes as needed for chest pain (May repeat every 5 minutes if CP not resolved. Up to 3 tablets maximum in 15 minutes.) 25 tablet 11 3 Active semaglutide (Wegovy) 0.25 mg/0.5 mL auto-injector Inject 0.5 mL (0.25 mg total) under the skin every 7 days Active carvediloL (COREG) 12.5 mg tabletIndications :Coronary artery disease of [place] artery of [place] heart with stable angina pectoris,Essentia l hypertension TAKE 1 TABLET BY MOUTH TWICE DAILY WITH MEALS 180 tablet 1 5 Active rosuvastatin (CRESTOR) 40 mg tabletIndications :Coronary artery disease of [place] artery of [place] heart with stable angina pectoris Take 1 tablet (40 mg total) by mouth daily 90 tablet 1 5 Active Active Problems Problem Noted Date Diagnosed Date Neck pain on right side 09/20/2022 Assessment & Plan (09/20/2022 3:50 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 Sanchez is postop C6-[address] Gonzalez in 2018. Patient reports mostly right lateral neck pain and shoulder pain with focal numbness and tingling in his right hand. He also reports difficulty with swallowing. X-rays show fusion at C6-7 but possible adjacent level stenosis at the levels above. There are anterior osteophytes noted. Will recommend MRI of the cervical spine without contrast to assess this further. Patient has an order to obtain at [facility]. Informed the patient to make sure these mail us the CD for Dr. Gonzalez to review to further formulate a plan of care. Osteoarthritis of knee 08/24/2022 Enthesopathy of hip region 08/24/2022 Hyperkalemia 07/06/2022 Impaired fasting glucose 05/17/2022 Pain of left sacroiliac joint 05/03/2022 Arthralgia of left knee 02/24/2022 Tear of medial meniscus of knee 02/24/2022 Mass of nasal sinus 02/09/2022 Abnormal computerized axial tomography of chest 01/16/2022 Pneumonia 12/29/2021 Lung density on x-ray 12/22/2021 Spinal stenosis of lumbar region 12/22/2021 Abscess of groin 10/05/2021 Coronary artery disease of n ative artery of [place] heart with stable angina pectoris 10/15/2019 Hyperlipidemia LDL goal <70 09/13/2019 Essential hypertension 09/13/2019 Obstructive sleep apnea 09/13/2019 Family history of premature coronary artery dise ase 09/13/2019 Shortness of breath 09/13/2019 Atypical chest pain 09/13/2019 Abnormal stress test 09/13/2019 Bifascicular block 09/13/2019 Anxiety 09/05/2019 Cervical disc disorder with radiculopathy of mid-cervical region 12/25/2018 Assessment & Plan (12/25/2018 3:47 PM CDT): Mr. Sanchez is doing well after anterior cervical decompression and fusion at C6-7. I plan to see him back in 1 year's time with AP and lateral lumbar spine films at that time. The patient has chronic low back pain without any radicular component. He will ask his primary care physician for referral to pain management or another primary care physician close by that can manage the low back pain. Arthralgia of hip 05/20/2016 Knee pain 05/19/2016 Immunizations Immunization Administration Dates Next Due Influenza, Trivalent, High D ose, Split, Preservative Free, Intramuscular 05/09/2020,06/27/2019,05/26/2018,05/16 Influenza, Trivalent, IM (MDV) 05/30/2014,2012 Influenza, Trivalent, Preser vative Free, Intramuscular 05/10/2016 Pneumococcal Conjugate PCV 13 05/26/2018 Pneumococcal Polysaccharide PPV23 05/09/2020 Tdap 05/26/2018 ZOSTER LIVE 06/13/2013 ZOSTER Recombinant 12/26/2018,10/08/2018 Zoster, unspecified 08/28/2018 Surgical History Surgery Date Site/Laterality Comments BLADDER TUMOR EXCISION 08/28/2016 - 08/27/2017 with prostate stapling (urolift) CERVICAL FUSION 12/26/2017 - 01/25/2018 C6-7 ACDF (Carlos) COLONOSCOPY CARDIAC CATHETERIZATION KNEE ARTHROSCOPY Left CATARACT EXTRACTION, BILATERAL Bilateral Medical History Medical History Date Comments Hypertension Osteoarthritis HNP (herniated nucleus pulposus), cervical Bladder cancer (HCC) BPH (benign prostatic hyperplasia) Obesity (BMI 35.0-39.9 without comorbidity) BMI 38 Sleep apnea CPAP compliant Diarrhea when eating sauc es Hyperlipidemia Bladder cancer (HCC) Anxiety and depression Arthritis Enlarged prostate Chest tightness Abnormal stress test 08/2019 Family history of premature coronary artery dise ase Bifascicular block Family History Medical History Relation Name Comments Heart disease Brother 1 Diabetes Brother 2 Heart disease Brother 2 Heart disease Father Hypertension Mother Stroke Mother Relation Name Status Comments Brother 1 Alive Brother 2 Alive Father (Age 42) Mother (Age 90) Social History Tobacco Use Types Packs/Day Years Used Date Smoking Tobacco: Former Cigarettes 2 20 1 3 - 2002 Smokeless Tobacco: Never Tobacco Cessation:Counseling Given: Not Answered Alcohol Use Standard Drinks/Week Comments No 0 (1 standard drink = 0.6 oz pur e alcohol) AUDIT-C Answer Date Recorded Q1: How often do you have a drink containing alc ohol? 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 Gender Identity Not on file Sexual Orientation Not on file Last Filed Vital Signs Vital Sign Reading Time Taken Comments Blood Pressure 134/80 04/03/2025 2:09 PM CDT Pulse 66 04/03/2025 2:09 PM CDT Temperature 36.8 C (98.2 F) 04/09/2024 7:06 PM CDT Respiratory Rate 18 04/09/2024 7:06 PM CDT Oxygen Saturation 95% 04/03/2025 2:09 PM CDT Inhaled Oxygen Concentration - - Weight 105.7 kg (233 lb) 04/03/2025 2:09 PM CDT Height 177.8 cm (5' 10) 04/03/2025 2:09 PM CDT Body Mass Index 33.43 04/03/2025 2:09 PM CDT Plan of Treatment Health Maintenance Due Date Last Done Comments Colon Cancer Screening-Colonoscopy 1950 Depression Screening 1950 Fall Risk Assessment 1950 Hepatitis C Screening 1950 Hepatitis B Screening 01/27/1970 Abdominal Aortic Aneurysm (A AA) Screen 01/27/2017 Well Visit 65+ 01/27/2017 Influenza Vaccine (#1) 2025 , 05/09/2020, 06/27/2019, Additional history exists DTaP/Tdap/Td Vaccine (2 - Td or Tdap) 05/26/2028 05/26/2018 Zoster Vaccine Completed 12/26/2018, 09/28, 08/28/2018, Additional history exists Pneumococcal vaccine 65+ Completed 05/09/2020, 04/29 Medical Devices Implanted Type Area Stoker Installation Mechanic Device Identifier Shelf Expiration Date Model / Serial / Lot Putty 2.5cc I-Factor Bone - [id number] Implanted:Qty: 1 on 01/01/2018 by Jono Gonzalez MD at [facility] [employer] 10/25/2020 700-02 5 / / [id number] [employer] 3d Cervical [id number] 7 Deg - [id number] Implanted:Qty: 1 on 01/01/2018 by Jono Gonzalez MD at [facility] N/A: Neck Core Link [id number] 02/22/2022 [id number] / / [id number] Description:C 6-7 Plate Bone Anodyne L13 Mm Spine Cervical Anterior Level 1 Nonsterile - [id number] Implanted:Qty: 1 on 01/01/2018 by Jono Gonzalez MD at [facility] Core Link [id number] / / Screw Bone Anodyne L14 Mm Od4 Mm Spine Cervical Variable Angle Self Tap Nonsterile - [id number] Implanted:Qty: 4 on 01/01/2018 by Jono Gonzalez MD at [facility] N/A: Spine Cervical Core Link [id number] / / [employer] Gideon [id number] Synergy 3.5mm 24mm 144cm Radiopaque 1 Access Port Inflation Lumen - [id number] Implanted:Qty: 1 on 09/20/2019 by Jigar Kapadia MD at [facility] [employer] Gideon 11/14/2020 [id number] / / Daig Gideon [id number] Device Closure Angio-Seal Vip Bondek-Plus Polyglyd L70 Cm Od6 Fr Odsec.035 In Vascular - [id number] Implanted:Qty: 1 on 09/20/2019 by Jigar Kapadia MD at [facility] [employer] Please/[employer] [id number] / / Insurance [facility]ICARE [facility] MEDICARE [facility] MEDICARE BLUE CROSS MEDICARE SUPPLEMENT Advance Directives For more information, please contact: [phone] * Full Code (Latest Code Status on File) Date Activated Date Inactivated Comments 01/01/2018 12:27 PM 01/01/2018 6:36 PM Care Teams Banquet Attendant Relationship Specialty Start Date End Date Floresita Segura PA PCP - General Physician Public Works Inspector 08/29/19
== END 2025-07-08 13:50 | disposition home or self-care (01) ==
PROVIDERS: PCP Physician Assistant; Visit Provider Physician Assistant
DX: R09.89 Other specified symptoms and signs involving the circulatory and respiratory systems (principal); I65.23 Occlusion and stenosis of bilateral carotid arteries
CPT/HCPCS: 93880

== ENCOUNTER 2025-08-22 10:53 | Outpatient (CLI) | payer MEDICARE, SELFPAY ==
--- NOTE | ~2025-08-22 | MR_ITS ---
EXAMINATION: MR cervical spine wo con DATE: 08/22/2025 11:39 INDICATION: Gait instability TECHNIQUE: Magnetic resonance imaging (MRI) of the cervical spine was performed without intravenous contrast. Sequences included sagittal T2-weighted FSE, sagittal T2-weighted FS FSE, sagittal T1-weighted FSE, axial MERGE and axial T2- weighted FSE. COMPARISON: None FINDINGS: Slight reversal of the normal cervical lordosis. 100 mm retrolisthesis C4 on C5 and C5 on C6. Magnetic field artifact associated with metallic instrumentation, likely interbody fusion device and anterior plate and screws for C6-C7 anterior spinal fusion. Vertebral body heights are normal. Moderate to severe disc height loss with fibrovascular degenerative endplate changes at C5-C6. Moderate disc height loss at C3-C4 and C4-C5 and mild disc height loss at C2-C3 and C7- T1. Marrow signal is otherwise unremarkable. Cord signal intensity is normal. Visualized cervical soft tissues are unremarkable. Mucous retention cyst at the floor of the left maxillary sinus. Mucosal thickening in the bilateral sphenoid sinuses and in the right maxillary sinus, the latter which is also filled with mucous. The following disc levels are specifically discussed: C2-C3: The disc does not extend beyond the endplate margin. There is no uncovertebral joint osteoarthritis. There is mild bilateral facet joint osteoarthritis. There is no neural foraminal stenosis. There is no central canal stenosis. C3-C4: Disc is bulging, eccentric to the right with mild indentation of the ventral surface of the cord. There is mild left and moderate right uncovertebral joint osteoarthritis. There is mild left facet joint osteoarthritis. There is mild bilateral neural foraminal stenosis. There is mild central canal stenosis. C4-C5: Posterior disc osteophyte complex which indents the ventral surface of the cord. There is moderate left and severe right uncovertebral joint osteoarthritis. There is mild left facet joint osteoarthritis. There is moderate right and mild to moderate left neural foraminal stenosis. There is mild central canal stenosis. C5-C6: Disc is bulging, eccentric to the left where it indents the left ventral surface of the cord. There is severe bilateral uncovertebral joint osteoarthritis. There is mild bilateral facet joint osteoarthritis. There is mild right and moderate to severe left neural foraminal stenosis. There is mild central canal stenosis. C6-C7: Disc space is fused. There is mild bilateral facet joint osteoarthritis. There is mild bilateral neural foraminal stenosis. There is no central canal stenosis. C7-T1: The disc does not extend beyond the endplate margin. There is no uncovertebral joint osteoarthritis. There is moderate bilateral facet joint osteoarthritis. There is mild bilateral neural foraminal stenosis. There is no central canal stenosis. IMPRESSION: 1. Moderate to severe cervical spondylosis with instrumented C6-C7 anterior spinal fusion. 2. Sinus disease. Reviewed, dictated and finalized at location A. [employer] IMPRESSION: 1. Moderate to severe cervical spondylosis with instrumented C6-C7 anterior spi nal fusion. 2. Sinus disease.
== END 2025-08-22 10:54 | disposition home or self-care (01) ==
LOC: MICIMG 10:55
PROVIDERS: PCP Physician Assistant; Visit Provider Neurological Surgery
DX: R26.81 Unsteadiness on feet (principal)
CPT/HCPCS: 72141